=== PATIENT | male | born 1960 | race Caucasian/White ===

== ENCOUNTER 2022-06-23 19:45 | Emergency (ER) | payer SELFPAY ==
[2022-06-23 20:53] LABS: #Eosinphils 0.1 thou/uL (0.0-0.7); #Monocytes 0.5 thou/uL (0.11-0.59); #Neutrophils 4.8 thou/uL (1.40-6.50); %Basophils 0.5 % (0.0-1.0); %Eosinophils 1.6 % (0.0-10.0); %Lymphocytes 15.7 % (21.0-51.0); %Monocytes 8.4 % (0.0-10.0); %Neutrophils 73.9 % (42.0-75.0); Hemoglobin 4.6 g/dL (14.0-18.0); Mean Corpuscular HGB CONC 28.6 g/dL (32.0-36.0); Mean Corpuscular Hemoglobin 23.4 pg (27.0-31.0); Mean Corpuscular Volume 81.8 fl (78.0-98.0); Mean Platelet Volume 7.1 fL (7.4-10.4); Platelet Count 279 10x3/uL (130-400); RBC Distribution Width 31.4 % (11.5-14.5); Red Blood Cell (RBC) Count 1.95 mill/uL (4.70-6.10); White Blood Cell (WBC) Count 6.5 10x3/uL (4.8-10.8)
[2022-06-23 21:06] LABS: ALT (SGPT) 10 U/L (8-55); AST (SGOT) 12 U/L (5-34); Albumin 3.4 g/dL (3.4-4.8); Alkaline Phosphatase 70 U/L (40-110); Anion Gap 14 mmol/L (10-20); BUN (Urea Nitrogen) 13 mg/dL (8.4-25.7); Bilirubin, Total 0.4 mg/dL (0.2-1.2); Calc. Creatinine Clearance 0 mL/min (70-130); Calcium 8.6 mg/dL (7.8-10.44); Carbon Dioxide 21 mmol/L (23-31); Chloride 110 mmol/L (98-107); Estimated GFR 92; Globulin 2.7 g/dL (2.4-3.5); Glucose 185 mg/dL (80-115); Potassium 3.9 mmol/L (3.5-5.1); Protein, Total 6.1 g/dL (5.8-8.1); Sodium 141 mmol/L (136-145)
[2022-06-23] MEDS ORDERED: Sodium Chloride 0.9% 500 ML ONE (22:28)
== END 2022-06-23 23:16 | disposition short-term general hospital (02) ==
LOC: NAV ERS 19:45
DX: D64.9 Anemia, unspecified (principal); K92.2 Gastrointestinal hemorrhage, unspecified; I10 Essential (primary) hypertension; E11.9 Type 2 diabetes mellitus without complications; E78.5 Hyperlipidemia, unspecified; Z85.040 Personal history of malignant carcinoid tumor of rectum; Z79.899 Other long term (current) drug therapy
CPT/HCPCS: 36415; 36430; 86850; 86900; 86901; 99285; J7030; P9016